=== PATIENT | male | born 1995 | race Two or more races ===

== ENCOUNTER 2024-05-21 09:34 | Emergency (ER) | payer MEDICAID, SELFPAY ==
[2024-05-21 09:45] VITALS: PULSE 78; O2SAT 99; BMI 21.6
[2024-05-21 09:54] VITALS: BP 106/69; PULSE 72; RESP 18; TEMP 36.4; O2SAT 98; BMI 21.6
--- NOTE | 2024-05-21 10:02 | XR_ITS ---
Examination: PA lateral chest 2 views TECHNIQUE: Upright PA lateral chest 2 views Exam date and time: May 21, 2024 1018 hours Comparison February 25, 2022 INDICATIONS: Chest pain today. FINDINGS: Mild pectus deformity which accentuates the left ventricle No pneumonia or pulmonary edema The osseous structures are intact IMPRESSION: No active disease
--- NOTE | 2024-05-21 10:03 | XR_ITS ---
Examination: Abdomen AP single view Technique: AP portable supine abdomen, single view Exam date and time: May 21, 2024 1015 hours INDICATIONS: Abdominal pain and constipation beginning today FINDINGS: Moderate air and stool throughout the colon No obstruction No free air The osseous structures are intact IMPRESSION: Nonobstructive bowel gas
--- NOTE | 2024-05-21 10:06 | PD.EDRME ---
Rapid Medical Screening Exam RME Arrival date/time: 05/21/24 09:34 29-year-old male with no reported medical problems presents to the emergency department via EMS with complaints of sore throat, body aches nausea, vomiting, abdominal pain and constipation Time Seen by Provider: 05/21/24 09:37 Vital signs: Vital Signs Temperature 97.6 F 05/21/24 09:54 Pulse Rate 72 05/21/24 09:54 Respiratory Rate 18 05/21/24 09:54 Blood Pressure 106/69 05/21/24 09:54 Pulse Oximetry (%) 98 05/21/24 09:54 Oxygen Delivery Method Room Air 05/21/24 09:54
[2024-05-21 10:23] LABS: Basophils % (Auto) 1 % (0-2.5); Eosinophils # (Auto) 0.1 Thou/mm3 (0.0-0.5); Eosinophils % (Auto) 1 % (0-10); Hematocrit 43.6 % (41.0-53.0); Immature Granulocytes % (Auto) 1 % (0-0); Immature Granulocytes Auto 0.04 Thou/mm3 (0.00-0.00); Lymphocytes # (Auto) 1.8 Thou/mm3 (1.0-4.8); Lymphocytes % (Auto) 25 % (10-50); Mean Corpuscular HGB Conc 34.4 g/dl (31.0-37.0); Mean Corpuscular Hemoglobin 30.7 pg (25.0-35.0); Mean Corpuscular Volume 89 fL (80-100); Monocytes # (Auto) 0.7 Thou/mm3 (0.0-0.8); Monocytes % (Auto) 9 % (0-12); Neutrophils # (Auto) 4.6 Thou/mm3 (1.8-7.7); Neutrophils % (Auto) 64 % (37-80); Nucleated Red Blood Cell % 0 /100 WBC (0); Platelet Count 186 Thou/mm3 (140-440); RDW Standard Deviation 41.5 fL (35.1-43.9); Red Blood Count 4.88 Miln/mm3 (4.50-5.90); White Blood Count 7.2 Thou/mm3 (3.8-10.6)
[2024-05-21 10:44] LABS: Alanine Aminotransferase 20 U/L (10-49); Albumin, Serum 5.1 gm/dL (3.5-5.0); Alkaline Phosphatase 63 U/L (46-116); Anion Gap 11 (7-16); Aspartate Amino Transferase 14 U/L (0-34); BUN/Creatinine Ratio 17 Ratio (12-20); Bilirubin,Total 0.4 mg/dL (0.3-1.2); Blood Urea Nitrogen 17 mg/dL (9-23); Calcium 10.2 mg/dL (8.3-10.6); Calcium (Corrected) 10.2 mg/dL (8.5-10.1); Carbon Dioxide 27.4 mMol/L (20.0-31.0); Chloride 101 mMol/L (98-107); Estimated Creatinine Clearance 114.7 mL/min (>60); Globulin 2.6 gm/dL (2.3-3.5); Glucose 123 mg/dL (74-106); Lipase 43 U/L (12-53); Osmolality,Calculated 280 (275-295); Potassium 3.9 mMol/L (3.4-5.1); Sodium 139 mMol/L (136-145); Total Protein 7.7 gm/dL (5.7-8.2); eGFR > 60 See Note
[2024-05-21 10:57] LABS: Strep A Rapid Negative (Negative)
[2024-05-21 11:02] LABS: Collection Type, Urine Clean Catch; Squamous Epithelial Cell,Urine 0 /hpf (0-5)
[2024-05-21 11:06] LABS: Bilirubin,Urine Negative (Negative); Blood,Urine Negative (Negative); Clarity,Urine Clear (Clear/Hazy); Color,Urine Lt-Yellow (Lt Yel-Yel); Culture Indicated,Urine Not Indicated; Glucose, Urine Negative (Negative); Ketones,Urine Negative (Negative); Leukocyte Esterase,Urine Negative (Negative); Nitrite,Urine Negative (Negative); PH,Urine 6.5 (5.0-7.0); Protein,Urine Trace (Neg - Trace); RBC,Urine 3 /hpf (0-3); Specific Gravity,Urine 1.028 (1.001-1.035); Urobilinogen,Urine Negative mg/dL (0.0-1.0); WBC,Urine 1 /hpf (0-5)
[2024-05-21] MEDS: METOCLOPRAMIDE INJ 5 MG/ML VIAL 2 ML 10 MG IM (11:19)
[2024-05-21] MEDS: IBUPROFEN TAB 400 MG TABLET 800 MG PO (11:19)
[2024-05-21 11:27] LABS: Amphetamine/Methamp Scrn,U Negative (Negative); Barbiturate Screen,Urine Negative (Negative); Benzodiazepines Screen,Urine Negative (Negative); Benzoylecgonine Screen, Ur Negative (Negative); Fentanyl Screen,Urine Negative (Negative); Opiate Screen,Urine Negative (Negative); THC Screen,Urine Negative (Negative)
[2024-05-21 18:06] VITALS: BP 121/73; PULSE 62; RESP 18; TEMP 36.7; O2SAT 97
--- NOTE | 2024-05-21 18:42 | EDNOTE_ITS ---
Upper Respiratory Inf. RME/HPI General Stated Complaint: FLU LIKE SYMPTOMS Time Seen by Provider: 05/21/24 09:37 Source: patient Arrival date/time: 05/21/24 09:34 29-year-old male no significant past medical history presents emergency department complaining of sore throat, dizziness, sore throat, vomiting, constipation and diffuse abdominal pain that started today. Mode of arrival: ambulatory Limitations: no limitations RME / HPI RME / HPI Narrative: 05/21/24 09:34 29-year-old male with no reported medical problems presents to the emergency department via EMS with complaints of sore throat, body aches nausea, vomiting, abdominal pain and constipation Related Data Previous Rx's ?Medication ?Instructions ?Recorded benzoyl peroxide 10 % topical 1 applic topical QDAY #237 grams 01/09/24 cleanser (Acne Control (benzoyl peroxide)) acetaminophen 500 mg capsule 500 mg PO Q6H PRN pain #30 caps 05/21/24 ibuprofen 600 mg tablet 600 mg PO Q8H PRN pain #20 tabs 05/21/24 oseltamivir 75 mg capsule (Tamiflu) 75 mg PO BID 5 days #10 caps 05/21/24 Allergies Allergy/AdvReac Type Severity Reaction Status Date / Time No Known Allergies Allergy Verified 05/21/24 09:49 Review of Systems Review of Systems Systems Reviewed: All systems reviewed, normal except as documented Constitutional Constitutional: Reports system reviewed and no additional complaints, except as documented, Denies body ache(s), Denies chills and Denies fever(s) Eyes Eyes: Reports system reviewed and no additional complaints, except as documented and Denies change in vision ENT Ears, Nose, Mouth, and Throat: Reports system reviewed and no additional comp laints, except as documented, Denies disequilibrium, Denies dizziness, Reports sore throat and Reports vertigo Cardiovascular Cardiovascular: Reports system reviewed and no additional complaints, except as documented, Denies chest pain and Denies dyspnea Respiratory Respiratory: Reports system reviewed and no additional complaints, except as documented, Denies chest congestion, Reports cough and Denies dyspnea Gastrointestinal Gastrointestinal: Reports system reviewed and no additional complaints, except as documented, Reports abdominal pain, Denies nausea and Reports vomiting Musculoskeletal Musculoskeletal: Reports system reviewed and no additional complaints, except as documented, Denies abnormal gait and Denies arthralgias Integumentary/Breasts Skin/Breast: Reports system reviewed and no additional complaints, except as documented, Denies erythema, Denies rash and Denies wounds Neurologic Neurologic: Reports system reviewed and no additional complaints, except as documented, Denies abnormal gait, Denies disequilibrium, Denies dizziness and Reports vertigo Past Medical History Past Medical History CARDIAC: Negative Cardiac Disorders or Congestive Heart Failure RESPIRATORY: Negative Chronic Obstructive Pulmonary Disease (COPD) or Asthma GENITOURINARY: Negative Renal Disease ENDOCRINE: Negative Diabetes Mellitus Type 1 or Diabetes Mellitus Type 2 HEMATOLOGIC: Negative Sickle Cell Disease Social History SMOKING STATUS: Never smoker SECOND HAND EXPOSURE: No ED Exam General Limitations: Present no limitations General appearance: Present alert and in no apparent distress Head Head exam: Present atraumatic Eye Eye exam: Present normal appearance, PERRL and EOMI ENT ENT exam: Present normal exam, normal oropharynx and mucous membranes moist Neck Neck exam: Present normal inspection, full ROM and trachea midline Chest Chest inspection: Present normal inspection and symmetric chest wall rise Respiratory Respiratory exam: Present normal lung sounds bilaterally Cardiovascular Cardiovascular exam: Present regular rate, normal rhythm and normal heart sounds Abdominal Exam Abdominal exam: Present soft and normal bowel sounds Extremities Exam Extremities exam: Present normal inspection and full ROM Back Exam Back exam: Present normal inspection and full ROM Neurological Exam Neurological exam: Present alert, oriented X3 and CN II-XII intact Psychiatric Psychiatric exam: Present normal affect and normal mood Skin Skin exam: Present warm, dry, intact and normal color Course Quality Measures none Orders Category Date Time Status Bedside COVID-19 Antigen Test NOW Care 05/21/24 10:02 Completed Bedside Influenza A&B Antigen Test NOW Care 05/21/24 10:02 Completed XR abdomen 1V Stat Exams 05/21/24 10:03 Completed XR chest 2V Stat Exams 05/21/24 10:02 Completed CBC Stat Lab 05/21/24 10:10 Completed Comprehensive Metabolic Panel Stat Lab 05/21/24 10:10 Completed Drug Screen,Urine Stat Lab 05/21/24 10:41 Completed Lipase Stat Lab 05/21/24 10:10 Completed Strep A Rapid Stat Lab 05/21/24 10:05 Completed UA, C/S IF [Urinalysis, C/S if Indicated] Stat Lab 05/21/24 10:41 Completed Ibuprofen Tab [Motrin Tab] Med 05/21/24 10:02 Discontinued 800 mg PO X1 ONE Metoclopramide Inj [Reglan Inj] Med 05/21/24 10:03 Discontinued 10 mg IM X1 ONE Vital Signs Vital signs: Vital Signs Temperature 97.6 F 05/21/24 09:54 Pulse Rate 72 05/21/24 09:54 Respiratory Rate 18 05/21/24 09:54 Blood Pressure 106/69 05/21/24 09:54 Pulse Oximetry (%) 98 05/21/24 09:54 Oxygen Delivery Method Room Air 05/21/24 09:54 98% room air within normal limits Upper Respiratory Infection MDM Narrative MDM Narrative:: 29-year-old male no significant past medical history presents emergency depar tment complaining of sore throat, dizziness, sore throat, vomiting, constipation and diffuse abdominal pain that started today. Patient appears nontoxic and is hemodynamically stable. CBC and CMP was unremarkable. Chest x-ray was unremarkable for any pneumonic infiltrates. X-ray abdomen findings nonobstructive bowel gas pattern. Influenza AMB positive. Patient reports onset of symptoms was 2 days ago patient will be treated with Tamiflu. Patient instructed to increase fiber intake and drink plenty of fluids. Patient reported improvement in symptoms after given nausea medication. Patient data External records reviewed:: [facility] previous records Clinical information provided by:: patient Social determinants that could affect healthcare access:: none Patient has the following chronic illnesses:: None How is presenting disease/condition affected by chronic disease/condition?: no chronic disease Evaluation data The following diagnostics were reviewed and interpreted by me:: lab results and radiology exam(s) Lab and/or radiology exams considered but not ordered:: Ordered Interpretation Summary: Interpreted by me Medications / Prescriptions Medications or Prescriptions considered but not ordered:: Ordered Medication administrations:: Medication Administration History Discontinued Medications Ibuprofen (Ibuprofen Tab 400 Mg Tablet) 800 mg PO X1 ONE Stop: 05/21/24 10:03 Last Admin: 05/21/24 11:19 Dose: 800 mg Documented By: AXEL Metoclopramide HCl (Metoclopramide Inj 5 Mg/Ml Vial 2 Ml) 10 mg IM X1 ONE; Protocol Stop: 05/21/24 10:04 Last Admin: 05/21/24 11:19 Dose: 10 mg Documented By: AXEL Given Consultations Consultation(s) initiated? (list below): No Diagnosis Upper Respiratory Differential Diagnosis: upper respiratory infection, sinusitis, viral infection, bronchitis, influenza and pharyngitis Most likely diagnosis given after review of the tests above:: Influenza Admission Indicated Admission indicated?: not indicated Admission Request Was there a request for admission?: No Disposition Plan Disposition Plan: Discharge Discharge Attestation Discharge Attestation: The patient and all family members were given an opportunity to ask questions and understood the discharge instructions. Discharge instructions specifically effects, indications for sooner follow up or return to the emergency department, and the expected course of current diagnosis. Patient condition: Stable Discharge Plan Plan Patient Disposition: HOME (Self Care) Disposition Comment: Stable Prescriptions/Referrals Prescriptions/Med Rec: New acetaminophen 500 mg capsule 500 mg PO Q6H PRN (Reason: pain) Qty: 30 0RF ibuprofen 600 mg tablet 600 mg PO Q8H PRN (Reason: pain) Qty: 20 0RF oseltamivir [Tamiflu] 75 mg capsule 75 mg PO BID 5 Days Qty: 10 0RF No Action benzoyl peroxide [Acne Control(benzoyl peroxide)] 10 % cleanser 1 applic topical QDAY Qty: 237 2RF Referrals: Flory ([facility]CHRISTINE Mabry [Primary Care Provider] - In 1 week Problem List Clinical Impression: Influenza Patient/Caregiver Discharge Instructions Discharge Activity: activity as tolerated Education Materials: ED Influenza (Adult) Additional Instructions: Drink plenty of fluids and get plenty of rest. Take Tylenol or ibuprofen as needed for fever or pain. Take Tamiflu as prescribed. Follow-up with primary care provider in 2 to 3 days. Return to the emergency department for any worsening symptoms or as needed. Print Language: Chinese Stand Alone Forms: Nancy Award Info., Patient Portal Info Letter SISSY/CHRISTINE Supervising Physician YUNIEL Supervising Physician: Dr. Gordon
== END 2024-05-21 18:58 | disposition home or self-care (01) ==
PROVIDERS: Nurse Practitioner Primary Care; Emergency Provider Emergency Medicine; PCP Nurse Practitioner Primary Care
DX: J11.1 Influenza due to unidentified influenza virus with other respiratory manifestations (principal); K59.00 Constipation, unspecified
CPT/HCPCS: 36415; 71046; 74018; 80053; 80307; 81001; 83690; 85025; 87400; 87651; 87811; 96372; 99283; J2765; A9270

== ENCOUNTER → 2024-09-26 | Outpatient (BNVA) | payer MEDICAID, SELFPAY | END | disposition home or self-care (01) | PROVIDERS: PCP Nurse Practitioner Primary Care; Referring Provider Nurse Practitioner Primary Care; Visit Provider Nurse Practitioner Primary Care | DX: J30.2 Other seasonal allergic rhinitis (principal); L25.9 Unspecified contact dermatitis, unspecified cause; E78.2 Mixed hyperlipidemia | CPT/HCPCS: 99213 ==

== ENCOUNTER → 2024-11-12 | Outpatient (BNVA) | payer MEDICAID, SELFPAY | END | disposition home or self-care (01) | PROVIDERS: PCP Nurse Practitioner Primary Care; Referring Provider Nurse Practitioner Primary Care; Visit Provider Nurse Practitioner Primary Care | DX: E78.5 Hyperlipidemia, unspecified (principal) | CPT/HCPCS: 99212; G0463 ==

== ENCOUNTER 2024-11-28 07:56 | Emergency (ER) | payer MEDICAID, SELFPAY ==
[2024-11-28 07:58] VITALS: BP 110/65; PULSE 60; RESP 18; TEMP 36.9; O2SAT 99
--- NOTE | 2024-11-28 08:03 | EKG_ITS ---
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
--- NOTE | 2024-11-28 08:03 | PD.EDNV ---
Nausea/Vomit./Diarrhea-RME/HPI General Chief complaint: Nausea/Vomiting/Diarrhea Stated complaint: NAUSEA/VOMITTING Time Seen by Provider: 11/28/24 08:02 Arrival date/time: 11/28/24 07:56 Limitations: no limitations RME / HPI RME / HPI Narrative: DR. TWYLA DIAS ED EVALUATION: 29-year-old male with no significant past medical history aside from prior rib surgery with plate in/out between 2015?2017 presents to the Emergency Department [facility] with complaint of dizziness since this morning, described as lightheadedness and feeling like he was going to pass out. Denies fever, chills, chest pain, dysuria, or hematuria. Reports chronic mild constipation. No history of alcohol or THC use. Related Data Previous Rx's ?Medication ?Instructions ?Recorded fexofenadine 180 mg tablet 180 mg PO QDAY #90 tabs 09/26/24 (Lakeshia Hives) fluticasone propionate 50 1 spray intranasal BID #16 grams 11/12/24 mcg/actuation nasal spray,suspension (Flonase Allergy Relief) rosuvastatin 20 mg tablet 20 mg PO QDAY #90 tabs 11/12/24 ondansetron 4 mg disintegrating 4 mg PO Q12H PRN nausea and 11/28/24 tablet vomiting #4 tabs Allergies Allergy/AdvReac Type Severity Reaction Status Date / Time No Known Allergies Allergy Verified 11/28/24 08:17 Review of Systems Review of Systems Systems Reviewed: All systems reviewed, normal except as documented Past Medical History Past Medical History MUSCULOSKELETAL: Positive Musculoskeletal Disorders (pectus excavatum) Social History SMOKING STATUS: Never smoker SECOND HAND EXPOSURE: No SUBSTANCE USE: does not use ALCOHOL: Never ED Exam General Limitations: Present no limitations General appearance: Present alert and in no apparent distress Head Head exam: Present atraumatic, normocephalic and normal inspection Eye Eye exam: Present normal appearance, PERRL and EOMI ENT ENT exam: Present normal exam, normal oropharynx and mucous membranes moist Neck Neck exam: Present normal inspection, full ROM and trachea midline Chest Chest inspection: Present normal inspection and symmetric chest wall rise Respiratory Respiratory exam: Present normal lung sounds bilaterally Cardiovascular Cardiovascular exam: Present regular rate, normal rhythm and normal heart sounds Abdominal Exam Abdominal exam: Present soft and normal bowel sounds Extremities Exam Extremities exam: Present normal inspection and full ROM Back Exam Back exam: Present normal inspection and full ROM Neurological Exam Neurological exam: Present alert, oriented X3 and CN II-XII intact Psychiatric Psychiatric exam: Present normal affect and normal mood Skin Skin exam: Present warm, dry, intact and normal color Course Quality Measures none Orders Category Date Time Status Bedside COVID-19 Antigen Test NOW Care 11/28/24 08:08 Active Bedside Influenza A&B Antigen Test NOW Care 11/28/24 08:08 Completed EKG (ED ONLY) *Do not use* NOW Care 11/28/24 08:03 Completed EKG (ED Only) Stat Exams 11/28/24 08:03 Draft CBC Stat Lab 11/28/24 09:40 Completed CMP [Comprehensive Metabolic Panel] Stat Lab 11/28/24 09:40 Completed Drug Screen,Urine Stat Lab 11/28/24 09:45 Completed Lipase Stat Lab 11/28/24 09:40 Completed Troponin I Stat Lab 11/28/24 09:40 Completed UA, C/S IF [Urinalysis, C/S if Indicated] Stat Lab 11/28/24 09:45 Completed Ondansetron Odt [Zofran Odt] Med 11/28/24 08:03 Discontinued 4 mg PO X1 ONE Vital Signs Vital signs: Vital Signs Temperature 98.5 F 11/28/24 07:58 Pulse Rate 60 11/28/24 07:58 Respiratory Rate 18 11/28/24 07:58 Blood Pressure 110/65 11/28/24 07:58 Pulse Oximetry (%) 99 11/28/24 07:58 Oxygen Delivery Method Room Air 11/28/24 07:58 Nausea/Vomiting/Diarrhea MDM Narrative MDM Narrative:: IJoyce am scribing for and in the presence of Dr. Carpio. Patient is a 29-year-old male that seen emerged part with concerns for episode of nausea vomiting and chest pain. Vital signs and exam as listed. Concern for ACS arrhythmia metabolic disturbance, viral syndrome amongst others. Provided patient with medication for symptom relief,, ordered labs and EKG. EKG with evidence of first-degree heart block and benign early repolarization no other abnormalities to suggest ischemia or arrhythmia. Troponin normal. Labs without acute hematologic or metabolic abnormality. On reevaluation patient hemodynamically stable and in distress tolerating oral intake. Will discharge home with close return precautions follow-up with his primary care doctor as well as a theater manager given patient's first-degree heart block. Patient data External records reviewed:: [facility] previous records Clinical information provided by:: patient Social determinants that could affect healthcare access:: none Patient has the following chronic illnesses:: prior rib surgery with plate in/out between 2016?2017 How is presenting disease/condition affected by chronic disease/condition?: uneffected by Evaluation data The following diagnostics were reviewed and interpreted by me:: lab results and EKG tracing(s) Lab and/or radiology exams considered but not ordered:: none Interpretation Summary: My interpretation: EKG performed at 0824 hours, sinus rhythm, rate 58, prolonged NE at 215, normal QT, benign early repolarization Medications / Prescriptions Medications / Prescriptions considered but not ordered:: none Medication administrations:: Medication Administration History Discontinued Medications Ondansetron HCl (Ondansetron Odt 4 Mg Tabrap) 4 mg PO X1 ONE; Protocol Stop: 11/28/24 08:04 Last Admin: 11/28/24 08:26 Dose: 4 mg Documented By: AA see above Consultations Consultation(s) initiated? (list below): No Diagnosis Nausea Differential Diagnosis: other (vasovagal syncope, orthostatic hypotension, and dehydration) Most likely diagnosis given after review of the tests above:: Nausea First degree heart block Admission Indicated Admission indicated?: not indicated Admission Request Was there a request for admission?: No Disposition Plan Disposition Plan: Discharge Discharge Attestation Discharge Attestation: The patient and all family members were given an opportunity to ask questions and understood the discharge instructions. Discharge instructions specifically effects, indications for sooner follow up or return to the emergency department, and the expected course of current diagnosis. Patient condition: Stable Discharge Plan Plan Patient Disposition: HOME (Self Care) Prescriptions/Referrals Prescriptions/Med Rec: New ondansetron 4 mg tablet,disintegrating 4 mg PO Q12H PRN (Reason: nausea and vomiting) Qty: 4 0RF No Action fexofenadine [Lakeshia Hives] 180 mg tablet 180 mg PO QDAY Qty: 90 0RF fluticasone propionate [Flonase Allergy Relief] 50 mcg/actuation spray,suspension 1 spray intranasal BID Qty: 16 0RF Rx Instructions: administer into each nostril rosuvastatin 20 mg tablet 20 mg PO QDAY Qty: 90 0RF Referrals: No Primary/Family,Physician [Primary Care Provider] - In 1 week Problem List Clinical Impression: Nausea Patient/Caregiver Discharge Instructions Additional Instructions: Please eat a bland diet and hydrate well. Your EKG showed a first-degree heart block. It is important that you establish care with theater manager for follow-up. Return to the emergency room immediately if you have recurrence of symptoms new symptoms or symptoms of concern. Print Language: Palauan Stand Alone Forms: Nancy Award Info., Patient Portal Info Letter
[2024-11-28 08:14] VITALS: PULSE 74; RESP 18; O2SAT 99; BMI 22.4
[2024-11-28] MEDS: ONDANSETRON ODT 4 MG TABRAP PO (08:26)
[2024-11-28 09:50] VITALS: BP 115/67; PULSE 57; RESP 18; TEMP 36.4; O2SAT 98
[2024-11-28 09:52] LABS: Collection Type, Urine Clean Catch; Squamous Epithelial Cell,Urine 0 /hpf (0-5)
[2024-11-28 09:54] LABS: Basophils # (Auto) 0.0 Thou/mm3 (0.0-0.2); Basophils % (Auto) 1 % (0-2.5); Eosinophils # (Auto) 0.0 Thou/mm3 (0.0-0.5); Eosinophils % (Auto) 1 % (0-10); Hematocrit 46.0 % (41.0-53.0); Hemoglobin 15.7 g/dL (13.5-16.0); Immature Granulocytes Auto 0.04 Thou/mm3 (0.00-0.00); Lymphocytes # (Auto) 1.1 Thou/mm3 (1.0-4.8); Lymphocytes % (Auto) 19 % (10-50); Mean Corpuscular HGB Conc 34.1 g/dl (31.0-37.0); Mean Corpuscular Hemoglobin 30.7 pg (25.0-35.0); Mean Corpuscular Volume 90 fL (80-100); Monocytes # (Auto) 0.4 Thou/mm3 (0.0-0.8); Monocytes % (Auto) 7 % (0-12); Neutrophils # (Auto) 4.2 Thou/mm3 (1.8-7.7); Neutrophils % (Auto) 72 % (37-80); Nucleated Red Blood Cell # 0.00 Thou/mm3 (0.00-0.00); Nucleated Red Blood Cell % 0 /100 WBC (0); Platelet Count 178 Thou/mm3 (140-440); RDW Standard Deviation 42.4 fL (35.1-43.9); Red Blood Count 5.11 Miln/mm3 (4.50-5.90); White Blood Count 5.9 Thou/mm3 (3.8-10.6)
[2024-11-28 09:57] LABS: Bilirubin,Urine Negative (Negative); Blood,Urine Negative (Negative); Clarity,Urine Clear (Clear/Hazy); Color,Urine Lt-Yellow (Lt Yel-Yel); Culture Indicated,Urine Not Indicated; Glucose, Urine Negative (Negative); Ketones,Urine Negative (Negative); Leukocyte Esterase,Urine Negative (Negative); Nitrite,Urine Negative (Negative); PH,Urine 7.0 (5.0-7.0); Protein,Urine Negative (Neg - Trace); RBC,Urine < 1 /hpf (0-3); Specific Gravity,Urine 1.017 (1.001-1.035); Urobilinogen,Urine Negative mg/dL (0.0-1.0); WBC,Urine < 1 /hpf (0-5)
[2024-11-28 10:04] LABS: Amphetamine/Methamp Scrn,U Negative (Negative); Barbiturate Screen,Urine Negative (Negative); Benzodiazepines Screen,Urine Negative (Negative); Benzoylecgonine Screen, Ur Negative (Negative); Fentanyl Screen,Urine Negative (Negative); Opiate Screen,Urine Negative (Negative); THC Screen,Urine Negative (Negative)
[2024-11-28 10:13] LABS: Alanine Aminotransferase 31 U/L (10-49); Albumin, Serum 4.9 gm/dL (3.5-5.0); Albumin/Globulin Ratio 1.8 (1.2-2.2); Alkaline Phosphatase 65 U/L (46-116); Anion Gap 8 (7-16); Aspartate Amino Transferase 20 U/L (0-34); BUN/Creatinine Ratio 15 Ratio (12-20); Bilirubin,Total 0.5 mg/dL (0.3-1.2); Blood Urea Nitrogen 15 mg/dL (9-23); Calcium 9.6 mg/dL (8.3-10.6); Calcium (Corrected) 9.6 mg/dL (8.5-10.1); Carbon Dioxide 29.6 mMol/L (20.0-31.0); Chloride 102 mMol/L (98-107); Creatinine (Component) 1.0 mg/dL (0.6-1.3); Estimated Creatinine Clearance 118.9 mL/min (>60); Globulin 2.8 gm/dL (2.3-3.5); Glucose 101 mg/dL (74-106); Lipase 37 U/L (12-53); Osmolality,Calculated 280 (275-295); Potassium 4.0 mMol/L (3.4-5.1); Sodium 140 mMol/L (136-145); Total Protein 7.7 gm/dL (5.7-8.2); Troponin I < 0.002 ng/mL (0.0-0.045); eGFR > 60 See Note
[2024-11-28 11:28] VITALS: BP 125/85; PULSE 57; RESP 18; TEMP 37.1; O2SAT 96
== END 2024-11-28 11:39 | disposition home or self-care (01) ==
PROVIDERS: Emergency Provider Emergency Medicine
DX: R11.2 Nausea with vomiting, unspecified (principal); R00.1 Bradycardia, unspecified; I44.0 Atrioventricular block, first degree
CPT/HCPCS: 36415; 80053; 80307; 81001; 83690; 84484; 85025; 87400; 87811; 93005; 99283; Q0162

== ENCOUNTER → 2024-11-29 | Outpatient (BNVA) | payer MEDICAID, SELFPAY | END | disposition home or self-care (01) | PROVIDERS: PCP Nurse Practitioner Primary Care; Referring Provider Nurse Practitioner Primary Care; Visit Provider Nurse Practitioner Primary Care | DX: J01.90 Acute sinusitis, unspecified (principal); J30.2 Other seasonal allergic rhinitis; R00.2 Palpitations; E78.2 Mixed hyperlipidemia; Z53.29 Procedure and treatment not carried out because of patient's decision for other reasons | CPT/HCPCS: 99213 ==

== ENCOUNTER → 2024-12-02 | Outpatient (BNVA) | payer MEDICAID, SELFPAY | END | disposition home or self-care (01) | PROVIDERS: PCP Nurse Practitioner Primary Care; Referring Provider Nurse Practitioner Primary Care; Visit Provider Nurse Practitioner Primary Care | DX: R00.1 Bradycardia, unspecified (principal); J01.90 Acute sinusitis, unspecified | CPT/HCPCS: 93005; 99213 ==